=== PATIENT | female | born 1970 | race Caucasian/White ===

== ENCOUNTER → 2017-05-19 | Outpatient (CLI) | payer BC ==
[~2017-05-19] MED LIST: CEPH500C PO; HYDR-3454 PO; NABU750T PO
--- NOTE | 2017-05-19 13:24 | Diagnostic Imaging Report ---
EXAMINATION: Three views of the right knee. INDICATION: Right knee pain and swelling. FINDINGS: There is no fracture, dislocation, or radiopaque foreign body. There is mild joint space narrowing in the medial compartment and marginal osteophytes. Minimal osteophytes of the patella superiorly and inferiorly are seen. There is suggestion of a small to moderate effusion. IMPRESSION: Mild degenerative changes, mostly in the medial compartment. Small to moderate effusion. Dictated by: Dictated on workstation # [id number]
== END ==
LOC: RAD 09:39
PROVIDERS: ATTEND Orthopaedic Surgery
DX: M25.461 Effusion, right knee (principal); M25.561 Pain in right knee; R22.41 Localized swelling, mass and lump, right lower limb
CPT/HCPCS: 73562

== ENCOUNTER → 2017-08-11 | Outpatient (CLI) | payer BC ==
--- NOTE | 2017-08-11 09:56 | Diagnostic Imaging Report ---
PROCEDURE: MRI right joint lower extremity without contrast. TECHNIQUE: Multiplanar, multisequence non contrast-enhanced MRI of the right lower extremity was accomplished. INDICATION: Old tear of the medial meniscus. Right knee pain and swelling. FINDINGS: There is a moderate suprapatellar effusion. There is no Barclay's cyst. The extensor mechanism is intact. The ACL and the PCL are normal. There is a complex tear with mild displacement involving the posterior root of the medial meniscus. There is also horizontal tear involving the body of the medial meniscus. This has extension into the adjacent portion of the posterior horn. There is extrusion of the body of the medial meniscus with fluid extension deep to the MCL around the extruded meniscus. The MCL itself demonstrates no significant tear. The lateral collateral ligament complex appear intact. There is mild bone marrow edema seen in the subchondral region of the medial femoral condyle and medial tibial plateau. There is also bone marrow edema chondral area along the tibial plateau laterally near the tibial spine. There is severe cartilage thinning in the medial compartment and [id number] cartilage thinning in the central aspect of the lateral compartment. The cartilage in the patellofemoral compartment demonstrates about 50% thinning. IMPRESSION: 1. Osteoarthritis changes with worst cartilage thinning in the medial compartment. 2. Complex tears involving the posterior root and the body of the medial meniscus. Dictated by: Dictated on workstation # [id number]
== END ==
LOC: RAD 08:26
PROVIDERS: ATTEND Orthopaedic Surgery
DX: M23.221 Derangement of posterior horn of medial meniscus due to old tear or injury, right knee (principal)
CPT/HCPCS: 73721

== ENCOUNTER 2020-07-19 08:42 | Emergency (ER) | payer BC ==
[~2020-07-19] VITALS: Ht 172 cm; Wt 76.0 kg
[2020-07-19] MEDS ORDERED: LACTATED RINGERS 1,000 ML IV ONE (09:26)
[2020-07-19] MEDS ORDERED: KETOROLAC 30 MG/ML VIAL IVP ONE (09:30)
[2020-07-19] MEDS ORDERED: DIATRIZOATE MEGLUM/SODIUM 37% 120 ML (GASTROGRAFIN) PO ONE ×2 (09:30→10:15)
[2020-07-19] MEDS ORDERED: FAMOTIDINE 20MG/2ML IV (PEPCID) IV STA (09:35)
--- NOTE | 2020-07-19 09:35 | ED Abdominal Pain ---
General Chief Complaint: Abdominal/GI Problems Stated Complaint: ABD PAIN,BURNING SENSATION Nursing Triage Note: PT STATES HAVING DIFFICULTY HAVING BM'S FOR A COUPLE WEEKS, OVER 3 DAYS SINCE SHE HAS HAD A BM. PT STATES 7 POUND GAIN IN THE PAST COUPLE WEEKS. MIRALAX FOR 3 DAYS AND FLEET ENEMA YESTERDAY WITH NO RESULTS. Sepsis Screen: No Definite Risk Source of Information: Patient Exam Limitations: No Limitations History of Present Illness Date Seen by Provider: Jul 19, 2020 Time Seen by Provider: 09:12 Initial Comments Patient resents to ER by private conveyance with chief complaint of unable and bowel movement for the past for 5 days despite 3 days of MiraLAX and an enema yesterday. She feels distended and has pain all across the top of her abdomen. She's never had any abdominal surgeries. She does have a history of GERD on Nexium. She's not having any nausea just bad reflux. She denies any fevers, diarrhea, rectal bleeding, dysuria. No history of colonoscopies or EGDs. No significant family history cancer. Allergies and Home Medications Allergies Coded Allergies: No Known Drug Allergies (Unverified , 02/02/13) Home Medications Cephalexin Monohydrate 500 Mg Capsule, 1 EACH PO TID, (Reported) TAKE ONE CAPSULE BY MOUTH THREE TIMES A DAY. USE ALL OF THIS ANTIBIOTIC PRESCRIBED Nabumetone 750 Mg Tablet, 750 MG PO BID, (Reported) Patient Home Medication List Home Medication List Reviewed: Yes Review of Systems Review of Systems Constitutional: No chills, No diaphoresis, No fever EENTM: No Blurred Vision, No Double Vision Respiratory: Denies Cough, Denies Shortness of Air Cardiovascular: Denies Chest Pain, Denies Edema Gastrointestinal: See HPI, Abdomen Distended, Abdominal Pain, Constipated; Denies Diarrhea, Denies Nausea Genitourinary: Denies Burning, Denies Discharge Musculoskeletal: No back pain, No joint pain Skin: No pruritus, No rash All Other Systems Reviewed Negative Unless Noted: Yes Past Cbqvslo-Ohnizd-Mvcmro Hx Patient Social History Alcohol Use: Occasionally Uses Alcohol Beverage of Choice: Wine Recreational Drug Use: No Smoking Status: Current Someday Smoker Type Used: Cigarettes Recent Foreign Travel: No Contact w/Someone Who Travel: No Recent Infectious Disease Expo: No Recent Hopitalizations: No Physical Abuse: No Sexual Abuse: No Mistreated: No Fear: No Seasonal Allergies Seasonal Allergies: Yes Past Medical History Surgeries: Yes (RT KNEE, LT FOOT) Orthopedic Respiratory: No Cardiac: No Neurological: No : No [employer] History: Menopausal Genitourinary: No Gastrointestinal: Yes Gastroesophageal Reflux Musculoskeletal: Yes (HAMMERTOES, ARTHRITIS) Arthritis Endocrine: No HEENT: No Cancer: No Psychosocial: No Integumentary: No Blood Disorders: No Physical Exam Vital Signs Vital Signs - First Documented 07/19/20 08:48 Temp 36.1 Pulse 82 Resp 20 B/P (MAP) 140/92 (108) Pulse Ox 100 O2 Delivery Room Air Capillary Refill : Less Than 3 Seconds Height/Weight/BMI Height: '" Weight: lbs. oz. kg; 25.00 BMI Method: General Appearance: WD/WN, mild distress HEENT: PERRL/EOMI, pharynx normal Neck: full range of motion, normal inspection Respiratory: lungs clear, normal breath sounds, no respiratory distress, no accessory muscle use Cardiovascular: normal peripheral pulses, regular rate, rhythm Peripheral Pulses: 2+ Radial Pulses (R), 2+ Radial Pulses (L) Gastrointestinal: normal bowel sounds, soft, guarding, tenderness (RUQ and Epigastric) Extremities: normal inspection, normal capillary refill Neurologic/Psychiatric: alert, normal mood/affect, oriented x 3 Skin: normal color, warm/dry Progress/Results/Core Measures Results/Orders Lab Results Laboratory Tests Test 07/19/20 09:45 Range/Units White Blood Count 9.2 4.3-11.0 10^3/uL Red Blood Count 4.69 3.80-5.11 10^6/uL Hemoglobin 14.0 11.5-16.0 g/dL Hematocrit 43 35-52 % Mean Corpuscular Volume 92 80-99 fL Mean Corpuscular Hemoglobin 30 25-34 pg Mean Corpuscular Hemoglobin Concent 33 32-36 g/dL Red Cell Distribution Width 13.2 10.0-14.5 % Platelet Count 320 130-400 10^3/uL Mean Platelet Volume 9.0 9.0-12.2 fL Immature Granulocyte % (Auto) 1 % Neutrophils (%) (Auto) 52 42-75 % Lymphocytes (%) (Auto) 37 12-44 % Monocytes (%) (Auto) 9 0-12 % Eosinophils (%) (Auto) 1 0-10 % Basophils (%) (Auto) 0 0-10 % Neutrophils # (Auto) 4.8 1.8-7.8 10^3/uL Lymphocytes # (Auto) 3.4 1.0-4.0 10^3/uL Monocytes # (Auto) 0.8 0.0-1.0 10^3/uL Eosinophils # (Auto) 0.1 0.0-0.3 10^3/uL Basophils # (Auto) 0.0 0.0-0.1 10^3/uL Immature Granulocyte # (Auto) 0.1 0.0-0.1 10^3/uL Sodium Level 141 135-145 MMOL/L Potassium Level 3.0 L 3.6-5.0 MMOL/L Chloride Level 102 98-107 MMOL/L Carbon Dioxide Level 27 21-32 MMOL/L Anion Gap 12 5-14 MMOL/L Blood Urea Nitrogen 13 7-18 MG/DL Creatinine 0.77 0.60-1.30 MG/DL Estimat Glomerular Filtration Rate > 60 BUN/Creatinine Ratio 17 Glucose Level 86 70-105 MG/DL Calcium Level 8.4 L 8.5-10.1 MG/DL Corrected Calcium 8.2 L 8.5-10.1 MG/DL Total Bilirubin 0.4 0.1-1.0 MG/DL Aspartate Amino Transf (AST/SGOT) 14 5-34 U/L Alanine Aminotransferase (ALT/SGPT) 27 0-55 U/L Alkaline Phosphatase 93 40-136 U/L C-Reactive Protein High Sensitivity 0.04 0.00-0.50 MG/DL Total Protein 7.2 6.4-8.2 GM/DL Albumin 4.2 3.2-4.5 GM/DL My Orders Orders - ARMOND BARBOSA Ct Abdomen/Pelvis W (07/19/20 09:) Ed Iv/Invasive Line Start (07/19/20 09:) Lactated Ringers (Lr 1000 Ml Iv Solution (07/19/20:) Cbc With Automated Diff (07/19/20:) Comprehensive Metabolic Panel (07/19/20:) Hs C Reactive Protein (07/19/20 09:) Diatrizoate Meglum/Sodium 37% (Gastrogra (07/19/20 09:30) Ketorolac Injection (Toradol Injection) (07/19/20 09:30) Lidocaine 2% Viscous 15 Ml (Xylocaine Vi (07/19/20 09:45) Antacid Suspension (Mylanta Suspension (07/19/20 09:45) Famotidine Injection (Pepcid Injection) (07/19/20 09:35) Diatrizoate Meglum/Sodium 37% (Gastrogra (07/19/20 10:15) Iohexol Injection (Omnipaque 350 Mg/Ml 1 (07/19/20 10:15) Received Contrast (Hold Metformin- Contr (07/19/20 10:15) Sodium Chloride Flush (Catheter Flush Sy (07/19/20 10:15) Ns (Ivpb) (Sodium Chloride 0.9% Ivpb Bag (07/19/20 10:15) Medications Given in ED Current Medications Medications Dose Ordered Sig/Pranay Route Start Time Stop Time Status Last Admin Dose Admin Al Hydrox/Mg Hydrox/Simethicone 30 ml ONCE ONCE PO 07/19/20 09:45 07/19/20 09:46 DC 07/19/20 09:50 30 ML Diatrizoate Meglum/ Diatrizoate Sod 30 ml ONCE ONCE PO 07/19/20 10:15 07/19/20 10:16 DC 07/19/20 11:09 30 ML Iohexol 100 ml ONCE ONCE IV 07/19/20 10:15 07/19/20 10:16 DC 07/19/20 11:09 97 ML Ketorolac Tromethamine 30 mg ONCE ONCE IVP 07/19/20 09:30 07/19/20 09:31 DC 07/19/20 09:37 30 MG Lactated Ringer's 1,000 ml @ 0 mls/hr Q0M ONCE IV 07/19/20 09:26 07/19/20 09:29 DC 07/19/20 09:37 1,000 MLS/HR Lidocaine HCl 15 ml ONCE ONCE PO 07/19/20 09:45 07/19/20 09:46 DC 07/19/20 09:50 15 ML Sodium Chloride 100 ml ONCE ONCE IV 07/19/20 10:15 07/19/20 10:16 DC 07/19/20 11:09 80 ML Vital Signs/I&O 07/19/20 07/19/20 08:48 09:37 Temp 36.1 36.1 Pulse 82 Resp 20 B/P (MAP) 140/92 (108) Pulse Ox 100 O2 Delivery Room Air Blood Pressure Mean: 108 Progress Progress Note : Time: 11:36 Progress Note But no signs of obstruction. Seems to be obstipation. Patient has been up to go to the bathroom twice since she's been here. Liter of fluids and Toradol for discomfort. She is much more comfortable after these interventions. Diagnostic Imaging Diagonstic Imaging: CT Plain Films/CT/US/NM/MRI: abdomen, pelvis Comments NAME: TAISHA HICKS [facility] REC#: [id number] PT STATUS: REG ER : 1970 PHYSICIAN: ARMOND BARBOSA MD ADMIT DATE: 07/19/20/ER Draft Date of Exam:07/19/20 CT ABDOMEN/PELVIS W INDICATION: Abdominal pain and distention. TECHNIQUE: Multiple contiguous axial images were obtained through the abdomen and pelvis after administration of intravenous contrast. Auto Exposure Controls were utilized during the CT exam to meet ALARA standards for radiation dose reduction. All CT scans use one or more of the following dose optimizing techniques: automated exposure control, MA and/or KvP adjustment based on patient size and exam type or iterative reconstruction. There is no previous CT for comparison. FINDINGS: The visualized portions of the lung bases are clear. There were no pleural fluid collections. There is no free intraperitoneal air. The liver shows mild diffuse low-density change compatible with fatty infiltration. Gallbladder appears normal. Spleen, adrenals, and pancreas appear normal. The kidneys bilaterally show no hydronephrosis. There is a slightly irregular hypodense lesion in the inferior pole of the left kidney measuring about 2.2 cm. This shows intermediate Hounsfield units of 43, therefore is not a simple cyst and may be a complicated cyst or partially cystic mass. There is no retroperitoneal mass or adenopathy. There is no ascites or abnormal fluid collection. Visualized bowel loops show prominent stool throughout the colon but no sign of bowel obstruction. There is no significant small bowel dilatation. There is no pelvic mass or lymphadenopathy. IMPRESSION: No sign of bowel obstruction. There is prominent stool throughout the colon. There is mild fatty infiltration of the liver. There is a 2.2 cm hypodense lesion in the inferior pole of the left kidney. This does not have Hounsfield units compatible with simple cyst, this may be a complicated cyst or cystic mass. Consider ultrasound for further characterization, follow-up is recommended. Dictated on workstation # [id number] Dict: 07/19/20 1119 Trans: 07/19/20 1128 [id number] Interpreted by: JOSE MIKE MD Electronically signed by: Reviewed: Reviewed by Me Departure Impression Primary Impression: Obstipation Disposition: HOME, SELF-CARE Condition: Stable Departure-Patient Inst. Decision time for Depature: 11:37 Referrals: NO,LOCAL PHYSICIAN (PCP/Family) Primary Care Physician Patient Instructions: Constipation, Adult (DC) Add. Discharge Instructions: Drink lots of fluids. MiraLAX 3-4 times a day. Enema once or twice a day. Dulcolax one tablet twice a day. All discharge instructions reviewed with patient and/or family. Voiced understanding. ARMOND BARBOSA Jul 19, 2020 09:35
[2020-07-19] MEDS ORDERED: ANTACID SUSP 30 ML UDC (MYLANTA) PO ONE (09:45)
[2020-07-19] MEDS ORDERED: LIDOCAINE 2% VISCOUS 15 ML UDC PO ONE (09:45)
[2020-07-19 09:53] LABS: BASOPHILS % (AUTO) 0 % (0-10); EOSINOPHILS # (AUTO) 0.1 10^3/uL (0.0-0.3); EOSINOPHILS % (AUTO) 1 % (0-10); HEMATOCRIT 43 % (35-52); LYMPHOCYTES # (AUTO) 3.4 10^3/uL (1.0-4.0); LYMPHOCYTES % (AUTO) 37 % (12-44); MEAN CORPUSCULAR HEMOGLOBIN 30 pg (25-34); MEAN CORPUSCULAR HGB CONC 33 g/dL (32-36); MEAN CORPUSCULAR VOLUME 92 fL (80-99); MONOCYTES # (AUTO) 0.8 10^3/uL (0.0-1.0); MONOCYTES % (AUTO) 9 % (0-12); NEUTROPHILS # (AUTO) 4.8 10^3/uL (1.8-7.8); NEUTROPHILS % (AUTO) 52 % (42-75); PLATELET COUNT 320 10^3/uL (130-400); WHITE BLOOD COUNT 9.2 10^3/uL (4.3-11.0)
[2020-07-19 10:13] LABS: ALANINE AMINOTRANSFERASE 27 U/L (0-55); ALBUMIN 4.2 GM/DL (3.2-4.5); ALKALINE PHOSPHATASE 93 U/L (40-136); BILIRUBIN,TOTAL 0.4 MG/DL (0.1-1.0); BUN/CREATININE RATIO 17; CALCIUM 8.4 MG/DL (8.5-10.1); CARBON DIOXIDE 27 MMOL/L (21-32); CHLORIDE 102 MMOL/L (98-107); CREATININE SERUM 0.77 MG/DL (0.60-1.30); GFR ESTIMATED > 60; GLUCOSE 86 MG/DL (70-105); SODIUM 141 MMOL/L (135-145); TOTAL PROTEIN 7.2 GM/DL (6.4-8.2)
[2020-07-19] MEDS ORDERED: NS 100 ML (IVPB) BAG IV ONE (10:15)
[2020-07-19] MEDS ORDERED: CATHETER FLUSH 10 ML SYR IV PRN (10:15)
[2020-07-19] MEDS ORDERED: IOHEXOL 350 MG/ML 100 ML (OMNIPAQUE 350) VIAL IV ONE (10:15)
[2020-07-19] MEDS ORDERED: HOLD METFORMIN - RECEIVED CONTRAST 20 ML VIAL IV SCH (10:15)
--- NOTE | 2020-07-19 11:29 | Diagnostic Imaging Report ---
INDICATION: Abdominal pain and distention. TECHNIQUE: Multiple contiguous axial images were obtained through the abdomen and pelvis after administration of intravenous contrast. Auto Exposure Controls were utilized during the CT exam to meet ALARA standards for radiation dose reduction. All CT scans use one or more of the following dose optimizing techniques: automated exposure control, MA and/or KvP adjustment based on patient size and exam type or iterative reconstruction. There is no previous CT for comparison. FINDINGS: The visualized portions of the lung bases are clear. There were no pleural fluid collections. There is no free intraperitoneal air. The liver shows mild diffuse low-density change compatible with fatty infiltration. Gallbladder appears normal. Spleen, adrenals, and pancreas appear normal. The kidneys bilaterally show no hydronephrosis. There is a slightly irregular hypodense lesion in the inferior pole of the left kidney measuring about 2.2 cm. This shows intermediate Hounsfield units of 43, therefore is not a simple cyst and may be a complicated cyst or partially cystic mass. There is no retroperitoneal mass or adenopathy. There is no ascites or abnormal fluid collection. Visualized bowel loops show prominent stool throughout the colon but no sign of bowel obstruction. There is no significant small bowel dilatation. There is no pelvic mass or lymphadenopathy. IMPRESSION: No sign of bowel obstruction. There is prominent stool throughout the colon. There is mild fatty infiltration of the liver. There is a 2.2 cm hypodense lesion in the inferior pole of the left kidney. This does not have Hounsfield units compatible with simple cyst, this may be a complicated cyst or cystic mass. Consider ultrasound for further characterization, follow-up is recommended. Dictated by: Dictated on workstation # [id number]
[2020-07-19 11:50] VITALS: BP 138/83
== END 2020-07-19 11:49 | disposition home or self-care (01) ==
LOC: EDUNIT# 08:42 → ER 08:43
DX: K59.00 Constipation, unspecified (principal); K21.9 Gastro-esophageal reflux disease without esophagitis; F17.210 Nicotine dependence, cigarettes, uncomplicated
CPT/HCPCS: 36415; 74177; 80053; 85025; 86141

== ENCOUNTER → 2020-10-31 | Outpatient (CLI) | payer BC ==
--- NOTE | 2020-10-31 16:11 | Diagnostic Imaging Report ---
PROCEDURE: US renal bilateral. TECHNIQUE: Multiple real-time grayscale images were obtained over the kidneys in various projections, bilaterally. INDICATION: Left kidney cyst. COMPARISON: Correlation is made with CT study from 07/19/2020. FINDINGS: Right kidney measures 10.3 x 5.4 x 4.4 cm and left kidney measures 10.0 x 4.7 x 5.1 cm. Cortical thickness and echogenicity is within normal limits. There is a tiny 2 mm echogenic focus in the mid left kidney which may represent a nonobstructing calculus. There is a hypoechoic mass in the lower pole left kidney measuring 2.1 x 1.7 x 2.3 cm. No internal vascularity is present and findings are likely cystic. No other abnormality is detected. There is no hydronephrosis. IMPRESSION: 1. 2.1 x 2.3 cm probable cyst in lower pole of left kidney. 2. Tiny nonobstructing left renal calculus. No hydronephrosis is detected. Dictated by: Dictated on workstation # [id number]
== END ==
LOC: RAD 14:00
PROVIDERS: ATTEND Surgery
DX: N28.1 Cyst of kidney, acquired (principal); N20.0 Calculus of kidney
CPT/HCPCS: 76770